=== PATIENT | male | born 2000 | race Caucasian/White ===

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

== ENCOUNTER 2020-05-14 21:51 | Emergency (ER) | payer BC, SELFPAY ==
--- NOTE | 2020-05-14 22:24 | RAD ---
3 views right hand: 05/14/2020 COMPARISON: None HISTORY: Hyperextension injury of the right thumb FINDINGS: No fracture or dislocation. No radiopaque foreign body or subcutaneous gas. IMPRESSION: No acute findings.
== END 2020-05-14 22:48 | disposition home or self-care (01) ==
LOC: MADERS 21:51
DX: S63.601A Unspecified sprain of right thumb, initial encounter (principal); F17.220 Nicotine dependence, chewing tobacco, uncomplicated; M41.9 Scoliosis, unspecified; V49.3XXA Car occupant (driver) (passenger) injured in unspecified nontraffic accident, initial encounter

== ENCOUNTER 2021-04-20 20:46 | Emergency (ER) | payer BC ==
[2021-04-20] MEDS ORDERED: Ibuprofen 800 MG TAB ONE (21:16)
== END 2021-04-20 22:52 | disposition home or self-care (01) ==
LOC: MADERS 20:46
DX: R10.9 Unspecified abdominal pain (principal); F17.220 Nicotine dependence, chewing tobacco, uncomplicated

== ENCOUNTER 2022-06-29 21:09 | Emergency (ER) | payer BC ==
[2022-06-29] MEDS ORDERED: Lidocaine 1% PF 5 ML VIAL ONE (21:33)
[2022-06-29] MEDS ORDERED: Ibuprofen 800 MG TAB ONE (21:53)
== END 2022-06-29 22:04 | disposition home or self-care (01) ==
LOC: MADERS 21:09
DX: S60.112A Contusion of left thumb with damage to nail, initial encounter (principal); F17.210 Nicotine dependence, cigarettes, uncomplicated; F17.220 Nicotine dependence, chewing tobacco, uncomplicated; M41.9 Scoliosis, unspecified; W23.0XXA Caught, crushed, jammed, or pinched between moving objects, initial encounter
CPT/HCPCS: 11740

== ENCOUNTER 2022-12-12 21:41 | Emergency (ER) | payer BC ==
[2022-12-12] MEDS ORDERED: Ibuprofen 200 MG TAB ONE (23:06)
== END 2022-12-12 23:11 | disposition home or self-care (01) ==
LOC: MADERS 21:41
DX: M25.511 Pain in right shoulder (principal); F17.290 Nicotine dependence, other tobacco product, uncomplicated; F17.220 Nicotine dependence, chewing tobacco, uncomplicated